=== PATIENT | male | born 1955 | race Caucasian/White ===

== ENCOUNTER 2023-06-11 20:20 | Emergency (ER) | payer MEDICARE ==
[~2023-06-11] VITALS: Ht 177.8 cm; Wt 84.1 kg
[~2023-06-11 20:20] MED LIST: CHOL1CAP50 OR; DIGO0.2570 OR; ENAL1TAB47 OR; FURO40TA4 OR; GLIP5TAB12 OR; METF-372 OR; METO-6 OR; NITR0.4S31 SL; POTA-211 OR; ROSU10TA16 OR; WARF-111 OR
[2023-06-11 20:55] LABS: Basophils # (auto) 0.1 10 ^3/uL (0-0.2); Basophils % (auto) 0.9 % (0.0-2.0); Eosinophils # (auto) 0.1 10 ^3/uL (0-0.8); Eosinophils % (auto) 1.7 % (0.0-7.0); Hematocrit 46.7 % (41.0-53.0); Hemoglobin 16.2 g/dL (13.5-17.5); Lymphocytes # (auto) 1.4 10 ^3/uL (0.4-5.4); Lymphocytes % (auto) 19.1 % (10.0-50.0); Mean Corpuscular Hemoglobin 31.4 pg (28.0-32.0); Mean Corpuscular Hgb Conc. 34.7 g/dL (32.0-36.0); Mean Corpuscular Volume 90.5 fL (80.0-100.0); Monocytes # (auto) 0.7 10 ^3/uL (0-1.3); Monocytes % (auto) 10.5 % (0.0-12.0); Neutrophils # (auto) 4.9 10 ^3/uL (1.6-8.6); Neutrophils % (auto) 67.8 % (37.0-80.0); Nucleated Red Blood Cells % 0.2 %; Red Blood Cells 5.16 10^6/uL (4.5-5.90); Red Cell Distribution Width 13.9 % (11.8-14.3); White Blood Cell 7.2 10^3/uL (4.4-10.8)
[2023-06-11 21:13] LABS: Alanine Aminotransferase 11 U/L (7-40); Albumin 4.7 g/dL (3.2-4.8); Alkaline Phosphatase 53 U/L (46-116); Anion Gap 8 (5-15); Aspartate Aminotransferase 13 U/L (13-40); BUN/Creatinine Ratio 22.4 (10.0-20.0); Bilirubin, Total 0.3 mg/dL (0.2-1.0); Blood Urea Nitrogen 24 mg/dL (9-23); Calcium 9.4 mg/dL (8.7-10.4); Carbon Dioxide 23 mmol/L (20-30); Chloride 104 mmol/L (98-107); Glucose 152 mg/dL (74-106); Magnesium 1.8 mg/dL (1.6-2.6); Potassium 4.1 mmol/L (3.5-5.1); Sodium 135 mmol/L (136-145); Total Protein 6.8 g/dL (5.7-8.2)
[2023-06-12 01:20] VITALS: PULSE 70; RESP 15; O2SAT 94
[2023-06-12 02:38] LABS: INR 1.07 (0.9-1.15); Partial Thromboplastin Time 29.2 SEC (24.5-34.5); Prothrombin Time 11.2 sec (9.3-11.8)
[2023-06-12 04:25] VITALS: BP 136/72; PULSE 70; RESP 13; TEMP 98; O2SAT 94
== END 2023-06-12 04:48 | disposition home or self-care (01) ==
LOC: ER 20:22
DX: L76.22 Postprocedural hemorrhage of skin and subcutaneous tissue following other procedure (principal); I11.0 Hypertensive heart disease with heart failure; I50.9 Heart failure, unspecified; E11.9 Type 2 diabetes mellitus without complications; Z88.0 Allergy status to penicillin
CPT/HCPCS: 36415; 71045; 80053; 83735; 83880; 84484; 85025; 85610; 85730; 86850; 86900; 86901; 93005; 93926

== ENCOUNTER 2024-02-09 08:03 | Day surgery (SDC) | payer OTHER, MEDICARE ==
[~2024-02-09] VITALS: Ht 177.8 cm; Wt 83.9 kg
[~2024-02-09 08:03] MED LIST changes: +ASPI1TAB20 PO; +CARB0.5D8 OP; -CHOL1CAP50 OR; +CHOL200021 PO; +CLOP75TA70 PO; +CYAN-17 PO; +DIGO0.12 PO; -DIGO0.2570 OR; +EMPA1TAB3 PO; -ENAL1TAB47 OR; +FINE10TA PO; +FURO20TA3 PO; -FURO40TA4 OR; -GLIP5TAB12 OR; +GLIP5TAB21 OR; +IPRA0.03; +MET50T PO; -METO-6 OR; -POTA-211 OR; -ROSU10TA16 OR; +ROSU20TA56 PO; +SACU1TAB PO; -WARF-111 OR
[2024-02-09] MEDS ORDERED: fentaNYL CITRATE 100 MCG/2 ML VL ONE (08:51)
[2024-02-09] MEDS ORDERED: MIDAZOLAM HCL 2MG/2ML 2ml VIAL (1mg/ml) ONE (08:52)
[2024-02-09] MEDS ORDERED: MEPERIDINE HCL (25 MG/ML) 1ML VIAL ONE (08:52)
[2024-02-09] MEDS ORDERED: VANCOMYCIN HCL 1000 MG VL ONE (09:26)
[2024-02-09] MEDS ORDERED: MORPHINE SULFATE 4 MG/ML SYR/VIAL IV PRN (10:00)
[2024-02-09] MEDS ORDERED: ePHEDrine SULFATE 50 MG/ML AMP IV PRN (10:00)
[2024-02-09] MEDS ORDERED: LABETALOL HCL 5 MG/ML 4ML SYRINGE IV PRN (10:00)
[2024-02-09] MEDS ORDERED: MIDAZOLAM HCL 2MG/2ML 2ml VIAL (1mg/ml) IV PRN (10:00)
[2024-02-09] MEDS ORDERED: ONDANSETRON HCL 4 MG/2 ML VIAL IV ONE (10:00)
[2024-02-09] MEDS ORDERED: DexAMETHasone SOD PHOS 10MG/1ML VIAL INJ ONE (10:01)
[2024-02-09] MEDS ORDERED: ETOMIDATE (2MG/ML) 20ML VIAL IV ONE (10:01)
[2024-02-09 10:35] VITALS: TEMP 97.4; O2SAT 98
[2024-02-09] MEDS: HYDROmorphone HCL 2 MG/ML VL/or syr IV PRN (11:12)
[2024-02-09] MEDS ORDERED: EPINEPHrine HCL 1 MG/1 ML AMP ONE (11:34)
[2024-02-09 11:35] VITALS: BP 161/85; PULSE 69; RESP 13; O2SAT 97
== END 2024-02-09 11:41 | disposition home or self-care (01) ==
LOC: SUR 08:03
PROVIDERS: ATTEND Orthopaedic Surgery
DX: M23.8X1 Other internal derangements of right knee (principal); M25.861 Other specified joint disorders, right knee; I13.0 Hypertensive heart and chronic kidney disease with heart failure and stage 1 through stage 4 chronic kidney disease, or unspecified chronic kidney disease; E11.22 Type 2 diabetes mellitus with diabetic chronic kidney disease; I50.9 Heart failure, unspecified; N18.9 Chronic kidney disease, unspecified; G47.33 Obstructive sleep apnea (adult) (pediatric); I48.91 Unspecified atrial fibrillation; E78.5 Hyperlipidemia, unspecified; Z79.82 Long term (current) use of aspirin; Z79.01 Long term (current) use of anticoagulants; Z88.0 Allergy status to penicillin; Z79.899 Other long term (current) drug therapy; Z98.890 Other specified postprocedural states; Z95.810 Presence of automatic (implantable) cardiac defibrillator; Z95.5 Presence of coronary angioplasty implant and graft
CPT/HCPCS: 29888; 82962; C1713; J0171; J1100; J1170; J2175; J2250; J3010; J3370; J7050